=== PATIENT | female | born 1945 ===

== ENCOUNTER 2019-04-07 06:42 | Emergency (ER) | payer OTHER ==
[~2019-04-07] VITALS: Ht 162.6 cm; Wt 65.3 kg
[~2019-04-07 06:42] MED LIST: BACTROBAN OINT22 GM TP; LEVAQUIN500 MG PO; SEPTRA DS TABLE1 TAB PO; SYNTHROID50 MCG
== END 2019-04-07 11:40 | disposition home or self-care (01) ==
LOC: ER 06:42
DX: S80.212A Abrasion, left knee, initial encounter (principal); S80.211A Abrasion, right knee, initial encounter; S60.512A Abrasion of left hand, initial encounter; S60.511A Abrasion of right hand, initial encounter; S05.11XA Contusion of eyeball and orbital tissues, right eye, initial encounter; W18.39XA Other fall on same level, initial encounter; Y93.89 Activity, other specified; Y92.89 Other specified places as the place of occurrence of the external cause; Y99.8 Other external cause status

== ENCOUNTER 2021-11-30 05:01 | Emergency (ER) | payer OTHER ==
[~2021-11-30] VITALS: Ht 162.6 cm; Wt 64.4 kg
== END 2021-11-30 12:22 | disposition home or self-care (01) ==
LOC: ER 05:01
DX: N39.0 Urinary tract infection, site not specified (principal); R10.11 Right upper quadrant pain; B96.20 Unspecified Escherichia coli [E. coli] as the cause of diseases classified elsewhere; Z88.8 Allergy status to other drugs, medicaments and biological substances